=== PATIENT | female | born 1945 | race African-American/Black ===

== ENCOUNTER 2018-05-08 23:43 | Observation (INO) | payer MEDICARE ==
[2018-05-09 00:52] LABS: #Basophils 0.1 thou/uL (0.0-0.2); #Eosinphils 0.3 thou/uL (0.0-0.7); #Lymphocytes 1.4 thou/uL (1.20-3.40); #Monocytes 0.6 thou/uL (0.11-0.59); #Neutrophils 2.8 thou/uL (1.40-6.50); %Basophils 1.2 % (0.0-1.0); %Eosinophils 5.3 % (0.0-10.0); %Lymphocytes 26.9 % (21.0-51.0); %Monocytes 10.8 % (0.0-10.0); %Neutrophils 55.8 % (42.0-75.0); Hemoglobin 10.4 g/dL (12.0-16.0); Mean Corpuscular HGB CONC 32.4 g/dL (32.0-36.0); Mean Corpuscular Hemoglobin 27.8 pg (27.0-31.0); Mean Corpuscular Volume 85.8 fL (78.0-98.0); Mean Platelet Volume 7.8 fL (7.4-10.4); Platelet Count 194 thou/uL (130-400); RBC Distribution Width 13.6 % (11.5-14.5); Red Blood Cell (RBC) Count 3.75 mill/uL (4.20-5.40)
[2018-05-09 01:02] LABS: INR-International Normal Ratio 1.2; Prothrombin Time 15.2 SEC (12.0-14.7)
[2018-05-09 01:11] LABS: ALT (SGPT) Less than 7 U/L (8-55); AST (SGOT) 9 U/L (5-34); Albumin 3.4 g/dL (3.4-4.8); Alkaline Phosphatase 52 U/L (40-150); Anion Gap 11 mmol/L (10-20); BUN (Urea Nitrogen) 33 mg/dL (9.8-20.1); Bilirubin, Total 0.3 mg/dL (0.2-1.2); Calc. Creatinine Clearance 0 mL/min (70-130); Calcium 8.5 mg/dL (7.8-10.44); Carbon Dioxide 26 mmol/L (23-31); Chloride 106 mmol/L (98-107); Estimated GFR-MDRD 56; Globulin 2.4 g/dL (2.4-3.5); Glucose 98 mg/dL (83-110); Potassium 3.9 mmol/L (3.5-5.1); Protein, Total 5.8 g/dL (6.0-8.3); Sodium 139 mmol/L (136-145)
[2018-05-09 01:16] LABS: Troponin I Less than 0.010 ng/mL (< 0.028)
[2018-05-09 01:19] LABS: Bilirubin Negative (Negative); Blood, Urine Negative (Negative); Clarity CLEAR (Clear); Glucose, Urine (Dipstick) Negative (Negative); Leukocyte Trace (Negative); Nitrite Negative (Negative); Protein, Urine (Dipstick) Negative (Neg-Trace); Urobilinogen 0.2 mg/dL (0.2-1.0); pH, Urine 5.5 (5.0-9.0)
[2018-05-09 01:22] LABS: PTT Greater than 250.0 SEC (22.9-36.1)
[2018-05-09 01:22] LABS: Bacteria/HPF None Seen HPF (None Seen); Hyaline Casts/LPF 0-3 HYALINE CAST LPF (0-3 Hyaline); Pathc Cast-AUWi Flag 0.14 (0-2.49); RBC/HPF None Seen HPF (0-3); Squamous Epithelial 0-3 HPF (0-3); WBC/HPF 0-3 HPF (0-3)
[2018-05-09 03:29] VITALS: BMI 43.3
[2018-05-09 05:08] LABS: #Eosinphils 0.2 thou/uL (0.0-0.7); #Monocytes 0.5 thou/uL (0.11-0.59); #Neutrophils 2.6 thou/uL (1.40-6.50); %Basophils 0.5 % (0.0-1.0); %Eosinophils 4.9 % (0.0-10.0); %Monocytes 11.9 % (0.0-10.0); %Neutrophils 58.8 % (42.0-75.0); Hemoglobin 10.2 g/dL (12.0-16.0); INR-International Normal Ratio 1.1; Mean Corpuscular HGB CONC 31.8 g/dL (32.0-36.0); Mean Corpuscular Hemoglobin 27.5 pg (27.0-31.0); Mean Corpuscular Volume 86.7 fL (78.0-98.0); Mean Platelet Volume 7.6 fL (7.4-10.4); Platelet Count 184 thou/uL (130-400); Prothrombin Time 14.6 SEC (12.0-14.7); RBC Distribution Width 13.6 % (11.5-14.5); White Blood Cell (WBC) Count 4.3 thou/uL (4.8-10.8)
[2018-05-09 05:13] LABS: PTT 133.2 SEC (22.9-36.1)
[2018-05-09 05:25] LABS: Troponin I 0.012 ng/mL (< 0.028)
[2018-05-09 05:37] LABS: ALT (SGPT) Less than 7 U/L (8-55); AST (SGOT) 10 U/L (5-34); Albumin 3.3 g/dL (3.4-4.8); Alkaline Phosphatase 54 U/L (40-150); BUN (Urea Nitrogen) 31 mg/dL (9.8-20.1); Bilirubin, Total 0.4 mg/dL (0.2-1.2); Calc. Creatinine Clearance 78 mL/min (70-130); Calcium 8.5 mg/dL (7.8-10.44); Carbon Dioxide 25 mmol/L (23-31); Chloride 107 mmol/L (98-107); Estimated GFR-MDRD 65; Globulin 2.1 g/dL (2.4-3.5); Glucose 90 mg/dL (83-110); Protein, Total 5.4 g/dL (6.0-8.3); Sodium 139 mmol/L (136-145)
[2018-05-09 05:40] LABS: Anion Gap 11 mmol/L (10-20)
[2018-05-09 08:21] LABS: Troponin I Less than 0.010 ng/mL (< 0.028)
[2018-05-09] MEDS ORDERED: Carvedilol 25 MG TAB PO SCH ×2 (09:06→10:00)
[2018-05-09] MEDS ORDERED: Non-Formulary Item 1 EACH (Hydralazine Hcl [Hydralazine Hcl] 50 MG) PO SCH (09:06)
[2018-05-09] MEDS ORDERED: Non-Formulary Item 1 EACH (Hydrochlorothiazide [Hydrochlorothiazide] 12.5 MG) PO SCH (09:07)
[2018-05-09] MEDS ORDERED: Hydrochlorothiazide 25 MG TAB PO SCH (10:00)
[2018-05-09] MEDS ORDERED: Losartan 25 MG TAB PO SCH (10:00)
[2018-05-09] MEDS ORDERED: hydrALAZINE 25 MG TAB PO SCH (10:00)
[2018-05-09] MEDS: Apixaban 5 MG TAB PO SCH ×2 (10:57→20:25)
--- NOTE | 2018-05-09 11:43 | ULT ---
ULTRASOUND WITH DOPPLER DUPLEX VENOUS LOWER EXTREMITIES BILATERAL: HISTORY: 72-year-old female with diagnosis of pulmonary embolism at some other hospital out of town. COMPARISON: No prior imaging study of any modality, of any body part, is currently available for review. TECHNIQUE: Color flow Doppler, spectral waveform analysis of pulsed Doppler, and rod-scale imaging with drake marina and augmentation, were used to evaluate the bilateral common femoral, femoral, popliteal, bowling floor manager ior tibial, and superficial femoral, veins; and the proximal portions of the profunda femoral and gre ater saphenous, veins. FINDINGS: The linen room houseperson initially reported positive DVT in the distal portions of the bilateral femoral veins . However, the interpreting radiologist was not convinced of this based on the static images. The patie nt was brought back down to the imaging department and was scanned by the original linen room houseperson, then by another linen room houseperson, and by the radiologist. The patient's bilateral lower extremities are very la rge, and therefore the distal portions of the bilateral femoral veins are very difficult to visualize , as is also the case for the bilateral popliteal veins. These veins do appear to have compressibilit y, and therefore there is no definitive evidence of deep vein thrombosis. The rest of the veins have normal compressibility and demonstration of blood flow by Doppler. There is a thrombosed, hemorrhagic Veloz's cyst in the right popliteal fossa measuring approximately 6 x 2 x 3 cm. In the contralateral left popliteal fossa, there is a Veloz's cyst measuring 6.5 x 2 x 4.5 cm. IMPRESSION: 1. Limited study. Very poor visualization of the distal portions of bilateral femoral veins. 2. Bilateral Veloz's cysts. 3. No definitive evidence of deep vein thrombosis. SAUMYA Small POS: PORTILLO
--- NOTE | 2018-05-09 14:03 | HP ---
CHIEF COMPLAINT: Cough and shortness of breath. HISTORY: This patient is a 72-year-old female, who has a history of some congestive heart failure and osteoarthritis. She has some chronic lower extremity edema, but denies any recent debility. She developed some cough in February and was seen by her PCP, given some antibiotics and ultimately some cough suppressants, none of which were ultimately helpful. She was seen in emergency department elsewhere and was told that she had bronchitis and was referred back to her specific PCP and saw his partner, who subsequently ordered a chest x-ray. The following day, which was , she was called by the physician in the evening apparently and told that she had what he felt was some pulmonary edema and referred her to the emergency department. The patient was seen at the [facility], where she had a full workup which included a D-dimer slightly elevated at 1.27. She then had a CT angio of the chest, which reportedly was very limited study due to respiratory motions, but noted a filling defect in the right upper lobe pulmonary arteries, likely embolic, as well as equivocal filling defects in the right lower lobe and left upper lobe. The findings were concerning for pulmonary emboli, although they could have potentially been artifactual. She had dilated main pulmonary trunk and right and left main pulmonary arteries. The patient was subsequently transferred to this facility at her request, because she follows with Dr. Fitzgerald, Cardiology, for her CHF. The patient was actually started on a heparin drip at that facility and arrived here on such. Other workup there included TSH , which was normal. BNP was 171. Chemistries were normal with the exception of a BUN of 33, creatinine was 1.25, hemoglobin was 10.7. Chest x-ray showed stable cardiomegaly, lower lung consolidations related to likely atelectasis. The patient currently denies any shortness of breath or cough. She feels like those have resolved. She reports she cannot walk very far because of arthritis in her knees, so she is not too sure about dyspnea on exertion. She does indicate that she did have some pain lateral to her right breast, but she thought she had simply pulled a muscle reaching for something at the freezer in [employer]. That pain has resolved as well. REVIEW OF SYSTEMS: Notable for some generalized osteoarthritis, pains. The patient has some chronic mild lower extremity edema. Otherwise, all systems reviewed, pertinent positives and negatives noted in the HPI. PAST MEDICAL HISTORY: Notable for hypertension, osteoarthritis, congestive heart failure, and hyperlipidemia. PAST SURGICAL HISTORY: Herniorrhaphy, hysterectomy, total hip arthroplasty. FAMILY HISTORY: Father had congestive heart failure. Mother had cancer. SOCIAL HISTORY: The patient does not smoke, drink, or use drugs. She has been for about 6 months. Her daughter would be her surrogate decision maker and she is a full code. PHYSICAL EXAMINATION: VITAL SIGNS: Temperature is 98.3, pulse 67, respirations 20, O2 saturation 93% on room air, and blood pressure 134/64. GENERAL APPEARANCE: Age-appropriate female, morbidly obese, in no distress. Awake, alert, extremely pleasant, cooperative. HEENT: PERRL. She has no OP lesions. NECK: Supple and symmetric without lymphadenopathy, JVD, or bruits. HEART: Regular rate and rhythm without murmurs, gallops, or rubs. LUNGS: Clear to auscultation bilaterally. No wheezes or rales. ABDOMEN: Soft, nontender, nondistended. Positive bowel sounds. No masses. No organomegaly. EXTREMITIES: Do reveal 1 to 2+ pitting edema of both lower extremities to mid calf. LABORATORY DATA: From this morning, white count 4.3, hemoglobin 10.2, and platelets 184. PTT was 133, INR 1.1. Sodium 139, potassium 4.0, chloride 107, CO2 of 25 , BUN 31, creatinine is 1.01, glucose 90, AST 10, ALT less than 7. Troponin initially 0.01, subsequently 0.012. Total protein 5.4, albumin 3.3. Urinalysis is negative. IMPRESSION AND PLAN: 1. Possible pulmonary emboli. The scan apparently was limited in nature because of respiratory motion artifact. However, there is evidence of pulmonary emboli including some dilatation of the pulmonary trunk. We will discontinue the heparin drip, start the patient on Eliquis. I have discussed the case with Pulmonology. Currently, the patient is asymptomatic. She is not tachypneic. She is not hypoxic, and appears to be quite stable. She has echocardiogram and lower extremity Dopplers pending. 2. Hypertension. Continue losartan and hydralazine and hydrochlorothiazide. 3. Hyperlipidemia. Continue Zocor. 4. History of congestive heart failure. Continue carvedilol. Job ID: [id number] [facility]
[2018-05-09] MEDS: hydrALAZINE 25 MG TAB PO SCH ×2 (16:15→20:25)
--- NOTE | 2018-05-09 19:48 | CON ---
DATE OF CONSULTATION: CONSULTING PHYSICIAN: Dr. Velasquez REASON FOR CONSULTATION: Pulmonary embolism following encompassed 70 minutes of time with greater than 50% spent with the patient and/or in the patient's unit in the hospital. HISTORY OF THE PRESENT ILLNESS: This is a 72-year-old female who has developed atypical chest pain over the last week. She was being treated for asthmatic bronchitis by her primary care doctor, but was not getting better. He subsequently referred her for D-dimer evaluation, which was elevated. He asked her to go to the hospital in [place] last night, where CT pulmonary angiogram confirmed the existence of pulmonary emboli in the upper lobes bilaterally. She was started on anticoagulation. A venogram of her lower extremities were done earlier today, which did not show evidence of DVT. Currently, she is not experiencing any chest pain. She denies any previous history of estrogen use or cancer. PAST MEDICAL HISTORY: 1. Hypertension. 2. Osteoarthritis. 3. Congestive heart failure - systolic. 4. Hyperlipidemia. PAST SURGICAL HISTORY: 1. Herniorrhaphy. 2. Hysterectomy. 3. Total hip arthroplasty. 4. She is also pending knee replacement surgery. FAMILY MEDICAL HISTORY: Remarkable for congestive heart failure and cancer. SOCIAL HISTORY: Nonsmoker. Does not consume alcohol. Lives at home with her daughter. REVIEW OF SYSTEMS: 12-point review of systems otherwise negative. PHYSICAL EXAMINATION: VITAL SIGNS: Temperature 99.5, pulse 66, respirations 16, O2 saturation 95% on room air, and blood pressure 124/70. She is 5 feet 2 inches and weighs 221 pounds. HEENT: Unremarkable. NECK: Without adenopathy, JVD, or bruits. LUNGS: Clear without wheezing or rhonchi. CARDIAC: S1 and S2 regular without audible murmur, rub, or gallop. ABDOMEN: Soft, nontender, and nondistended. EXTREMITIES: No clubbing, cyanosis, or edema. LABORATORY DATA: White blood cell count 4.3, hematocrit 32.1, and platelet count 184. INR 1.1. Sodium 139, potassium 4, chloride 107, CO2 of 25, BUN 31, creatinine 1.0, and glucose 90. I reviewed her CT pulmonary angiogram from [place] and I agree with the radiologist's interpretation. ASSESSMENT: Pulmonary embolism - no obvious risk factors. RECOMMENDATION: Anticoagulation for 6 months. Initially, she will be on Eliquis 10 mg b.i.d. for 1 week and then 5 mg b.i.d. thereafter. We discussed the potential risk for anticoagulation. Her knee surgery needs to be postponed for at least 6 months. Job ID: [id number] [facility]
[2018-05-09] MEDS: Carvedilol 25 MG TAB PO SCH (20:26)
[2018-05-09] MEDS ORDERED: Atorvastatin Calcium 10 MG TAB PO SCH (21:00)
[2018-05-10 05:26] LABS: #Eosinphils 0.2 thou/uL (0.0-0.7); #Lymphocytes 1.2 thou/uL (1.20-3.40); #Monocytes 0.5 thou/uL (0.11-0.59); #Neutrophils 2.1 thou/uL (1.40-6.50); %Basophils 0.3 % (0.0-1.0); %Eosinophils 4.2 % (0.0-10.0); %Lymphocytes 29.4 % (21.0-51.0); %Monocytes 12.3 % (0.0-10.0); %Neutrophils 53.7 % (42.0-75.0); Hemoglobin 10.3 g/dL (12.0-16.0); Mean Corpuscular HGB CONC 32.2 g/dL (32.0-36.0); Mean Corpuscular Hemoglobin 27.9 pg (27.0-31.0); Mean Corpuscular Volume 86.7 fL (78.0-98.0); Mean Platelet Volume 7.7 fL (7.4-10.4); Platelet Count 185 thou/uL (130-400); RBC Distribution Width 13.6 % (11.5-14.5); Red Blood Cell (RBC) Count 3.68 mill/uL (4.20-5.40); White Blood Cell (WBC) Count 3.9 thou/uL (4.8-10.8)
[2018-05-10 05:42] LABS: ALT (SGPT) Less than 7 U/L (8-55); AST (SGOT) 10 U/L (5-34); Albumin 3.1 g/dL (3.4-4.8); Alkaline Phosphatase 51 U/L (40-150); Anion Gap 9 mmol/L (10-20); BUN (Urea Nitrogen) 26 mg/dL (9.8-20.1); Bilirubin, Total 0.3 mg/dL (0.2-1.2); Calc. Creatinine Clearance 91 mL/min (70-130); Calcium 8.7 mg/dL (7.8-10.44); Carbon Dioxide 27 mmol/L (23-31); Chloride 109 mmol/L (98-107); Estimated GFR-MDRD 78; Globulin 2.3 g/dL (2.4-3.5); Glucose 89 mg/dL (83-110); Protein, Total 5.4 g/dL (6.0-8.3); Sodium 141 mmol/L (136-145)
[2018-05-10] MEDS: Apixaban 5 MG TAB PO SCH (07:45)
[2018-05-10] MEDS: Carvedilol 25 MG TAB PO SCH (07:46)
[2018-05-10] MEDS: hydrALAZINE 25 MG TAB PO SCH (07:46)
[2018-05-10] MEDS ORDERED: Losartan 25 MG TAB PO SCH (09:00)
[2018-05-10] MEDS ORDERED: Hydrochlorothiazide 25 MG TAB PO SCH (09:00)
[2018-05-10] MEDS ORDERED: Non-Formulary Item 1 EACH (Hydrochlorothiazide [Hydrochlorothiazide] 12.5 MG) PO SCH (09:00)
[2018-05-10] MEDS ORDERED: Non-Formulary Item 1 EACH (Losartan Potassium [Losartan Potassium] 50 MG) PO SCH (09:06)
[2018-05-10 12:11] VITALS: BP 136/77; TEMP 98.6
--- NOTE | 2018-05-11 07:49 | PRG ---
DATE OF SERVICE: 05/10/2018 SUBJECTIVE: She is awake, alert, in no distress. Has no more chest pain. OBJECTIVE: VITAL SIGNS: On exam, temperature 98.9, pulse 77, respirations 18, O2 sat is 94%, and blood pressure 154/77. HEENT: Unremarkable. NECK: No JVD. LUNGS: Clear. CARDIAC: S1 and S2. Regular. ABDOMEN: Soft. EXTREMITIES: No edema. LABORATORY DATA: White blood cell count 3.9, hematocrit 31.9, and platelet count 185. Sodium 141, potassium 4, chloride 105, CO2 of 27, BUN 26, creatinine of 0.8, and glucose of 89. ASSESSMENT: Pulmonary embolism. Echo shows no evidence of right strain, but she does have severe mitral regurgitation. PLAN: Anticoagulation with Eliquis 10 mg twice a day for a total of one week, then 5 mg twice daily for the next 6 months. I would like to see her in the office in about 3 months. Job ID: [id number]
--- NOTE | 2018-05-13 10:46 | DIS ---
DATE OF ADMISSION: 05/09/2018 DATE OF DISCHARGE: 05/10/2018 DISCHARGE DIAGNOSES: 1. Pulmonary embolus. 2. History of congestive heart failure with chronic lower extremity edema. 3. Hypertension. 4. Hyperlipidemia. HISTORY: This patient is a 72-year-old female with a history of chronic lower extremity edema commiserate with her history of congestive heart failure. The patient was having some cough and congestion type symptoms for a period of time. She had seen her PCP and had been prescribed cough suppressants and antibiotics. She subsequently failed to improve and was seen in the emergency department and again diagnosed with bronchitis and sent back to her PCP. Her PCP's partner saw the patient and ordered a chest x-ray, which he felt was abnormal due to some pulmonary edema and encouraged the patient to go to the emergency department again. There, the patient was noted to have an elevated D-dimer and had a CT scan of the chest showing probable pulmonary embolus; however, there was some motion artifact. The patient subsequently requested transfer to our facility because she follows with Dr. Fitzgerald for her cardiology history. On initial exam, the patient reported that she had no shortness of breath, no chest pain, although she previously had some pain in the right lateral chest around the breast area. She also reported that her cough was resolved entirely. HOSPITAL COURSE: The patient was initially on heparin drip when she arrived. This was discontinued and the patient was started on Eliquis. Pulmonology was consulted, and an echocardiogram was performed. Pulmonology was able to review the patient's scan and was able to confirm that there were bilateral upper lobe pulmonary emboli. Given the fact the patient had no significant prior risk factors and she was quite asymptomatic and not hypoxic, it was felt that she was stable for discharge to home on oral anticoagulation. PHYSICAL EXAMINATION: VITAL SIGNS: On the day of discharge, temperature is 98.6, pulse 59, respirations 18, O2 saturation 96% on room air, and BP 136/77. GENERAL: The patient was awake, alert, oriented, pleasant, cooperative. HEART: Regular rate and rhythm with no murmurs. LUNGS: Clear bilaterally with no wheezes or rales. ABDOMEN: Benign. EXTREMITIES: Revealed trace to 1+ pitting edema in both lower extremities. DISPOSITION: The patient is discharged to home. ACTIVITY: As tolerated. She will remain on a heart-healthy diet. DISCHARGE MEDICATIONS: Eliquis 10 mg p.o. b.i.d. for one week and then 5 mg p.o. b.i.d. She will continue with her usual home doses of; 1. Hydrochlorothiazide. 2. Losartan. 3. Simvastatin. 4. Coreg. 5. Hydralazine. FOLLOWUP: She will follow up with Dr. Robbie Chaudhari in [place] and Dr. Lia steele. She can return to the hospital should she have any problems prior to that time. Job ID: [id number]
== END 2018-05-10 13:16 | disposition home or self-care (01) ==
LOC: ERS 23:43 → 2SW 05-09 02:45
PROVIDERS: ADMIT Internal Medicine; ATTEND Internal Medicine
DX: I26.99 Other pulmonary embolism without acute cor pulmonale (principal); I11.0 Hypertensive heart disease with heart failure; I50.20 Unspecified systolic (congestive) heart failure; M19.90 Unspecified osteoarthritis, unspecified site; E78.5 Hyperlipidemia, unspecified; Z79.899 Other long term (current) drug therapy; Z88.8 Allergy status to other drugs, medicaments and biological substances
CPT/HCPCS: 80053 ×3; 84484 ×2; 85025 ×3; 85610 ×2; 85730 ×2; 93005; 93306; 93970; 94760; 99285; G0378 ×2; 36415; 81003; 81015

== ENCOUNTER 2018-09-18 09:47 | Day surgery (SDC) | payer MEDICARE ==
--- NOTE | 2018-09-18 16:11 | ECHO ---
DATE OF PROCEDURE: 09/18/18 INDICATION FOR PROCEDURE: 73-year-old female with atrial fibrillation/flutter. Advised to undergo electrical cardioversion. She has been treated with Amiodarone as well as Eliquis. SURGEON: Sarah Fitzgerald M.D. TRANSESOPHAGEAL ECHOCARDIOGRAM: She was taken to the recovery area where she underwent short acting propofol. Impressions are as follows with the transesophageal echocardiogram. 1. Mild mitral valve regurgitation. 2. Mild tricuspid valve regurgitation. 3. Normal left ventricular systolic function. 4. Ejection fraction 55 to 60%. 5. Mild left atrial dilatation, approximately 4.2 cm in diameter. 6. No evidence of left atrium or left atrial appendage thrombus. The patient tolerated the procedure well.
--- NOTE | 2018-09-18 16:19 | OP ---
DATE OF PROCEDURE: 09/18/18 INDICATION FOR PROCEDURE: 73-year-old female with atrial fibrillation/flutter. Advised to undergo electrical cardioversion. She has been treated with Amiodarone as well as Eliquis. SURGEON: Sarah Fitzgerald M.D. ELECTRICAL CARDIOVERSION INDICATION: Atrial fibrillation. The patient underwent electrical cardioversion for atrial fibrillation after she underwent transesop hageal echocardiogram which showed no evidence of left atrial or left atrial appendage thrombus. Usin g one attempt at 200 joules, she was successfully converted from her atrial fibrillation back to a no rmal sinus rhythm with a heart rate in the 80s. There were no complications or difficulties encounte red.
--- NOTE | 2018-09-18 16:19 | DIS ---
DISCHARGE SUMMARY: ADMITTING DIAGNOSIS: Atrial fibrillation and flutter. She was seen as an outpatient with elective procedure to undergo electrical cardioversion and transes ophageal echocardiogram of her atrial fibrillation/flutter back to sinus rhythm. Other diagnosis incl ude hypertension with hypercholesterolemia, history of congestive heart failure, ejection fraction in the past has been stable. She has diastolic dysfunction and the atrial fibrillation. DISCHARGE DIAGNOSIS: Same, except she was successfully converted back to a sinus rhythm. Her discharge medications are the same as her admission medications which include iron tablets 325 mg a day. She takes Losartan 50 mg a day, aspirin 81 mg a day, hydrochlorothiazide ---/25 mg one half t ablet once or twice a day, potassium ER 20 mg q. day, Hydralazine 50 mg three times a day, Tylenol wi th codeine as needed, Eliquis 5 mg b.i.d., bumetanide 2 mg once a day, Amiodarone 200 mg once a day, benzonatate 100 mg q. day, Simvastatin 20 mg q. day. Her followup will be with me in 2 to 4 weeks in the office in [place] at the outpatient facility. PROCEDURES DURING THIS HOSPITAL STAY: 1. Transesophageal echocardiogram. 2. Electrical cardioversion of the atrial fibrillation. HOSPITAL COURSE: This very pleasant 73-year-old female has been followed by me for many years. She developed atrial fi brillation and was advised to undergo electrical cardioversion. She was placed on Amiodarone as well as Eliquis. She remained in atrial fibrillation. She had become short of breath. She does have a hist ory of diastolic dysfunction. She was seen in the outpatient facility today in recovery area where e underwent short acting propofol and then underwent the procedure without difficulties or complicati ons. She was not found to have any left atrial or left atrial appendage thrombus. She had mild mitral and tricuspid valve regurgitation and normal left ventricular systolic function. She underwent the e lectrical cardioversion using one attempt at 200 joules without any difficulties or complications. If she remains stable, she will be discharged to home within the next two hours. I will see her back in the office in the next 2 to 4 weeks.
== END 2018-09-18 13:45 | disposition home or self-care (01) ==
LOC: CCL 09:47
PROVIDERS: ATTEND Internal Medicine Cardiovascular Disease
PROC: 5A2204Z Restoration of Cardiac Rhythm, Single (ICD-10-PCS; principal; 2018-09-18)
DX: I48.91 Unspecified atrial fibrillation (principal); Z79.82 Long term (current) use of aspirin; Z79.899 Other long term (current) drug therapy; Z88.8 Allergy status to other drugs, medicaments and biological substances
CPT/HCPCS: 92960; 93005; 93010; 93312